=== PATIENT | male | born 1945 | race Caucasian/White ===

== ENCOUNTER → 2018-02-24 | Outpatient (CLI) | payer MEDICARE | END | disposition home or self-care (01) | LOC: PCVCCLINIC 15:53 | PROVIDERS: ATTEND Internal Medicine | DX: I11.0 Hypertensive heart disease with heart failure (principal); E78.5 Hyperlipidemia, unspecified; I65.23 Occlusion and stenosis of bilateral carotid arteries; F17.201 Nicotine dependence, unspecified, in remission; R06.02 Shortness of breath | CPT/HCPCS: 36415; 80061; 93005; G0463 ==

== ENCOUNTER → 2018-03-01 | Outpatient (CLI) | payer MEDICARE ==
--- NOTE | 2018-03-01 11:19 | PCVCIMAG ---
APPROVED REPORT Indications Amaurosis Fugax Stenosis Risk Factors Hypertension: History of Smoking Doppler Spectral Velocity Analysis PSV / EDVPSV / EDV ECA (R) 62 / 14 cm/sECA (L) 57 / 9 cm/s dICA (R) 90 / 34 cm/sdICA (L) 59 / 21 cm/s Jamila (R) 70 / 22 cm/smICA (L) 60 / 22 cm/s pICA (R) 44 / 18 cm/spICA (L) 50 / 17 cm/s Bulb (R) 65 / 19 cm/sBulb (L) 85 / 20 cm/s dCCA (R) 74 / 20 cm/sdCCA (L) 90 / 20 cm/s mCCA (R) 79 / 21 cm/smCCA (L) 96 / 25 cm/s Vert (R) 31 / 13 cm/sVert (L) 51 / 22 cm/s ICA/CCA 1.22ICA/CCA 0.67 Basic Measurements Blood Pressure: Pulses: Right Left RightLeft Brachial(Sitting) 140/45lsKw377/84mmHgTemporal Real Time B-Mode Imaging Vert. (R)AntegradeVert. (L)Antegrade Findings The right carotid bulb has mild plaque. The right proximal internal carotid artery shows no significant stenosis. The right common carotid artery shows no significant stenosis. The right external carotid artery shows no significant stenosis. The left carotid bulb has mild plaque. The left proximal internal carotid artery shows no significant stenosis. The left common carotid artery shows no significant stenosis. The left external carotid artery shows no significant stenosis. Conclusion 1. Mild bilateral plaquing without significant stenosis 2. Antegrade vertebral flow
--- NOTE | 2018-03-01 14:42 | PCVCIMAG ---
EXAM: AORTOILIAC DUPLEX INDICATION: Palpable abdominal fullness. FINDINGS: AORTA: Suprarenal aorta measures maximum diameter of 2.7 cm. There is not a fusiform infrarenal aortic aneurysm. The infrarenal aorta measures maximum diameter of 2.4 cm. No aortic stenosis. RIGHT COMMON ILIAC ARTERY: Maximum diameter is 1.6 cm. No significant stenosis. RIGHT EXTERNAL ILIAC ARTERY: No significant stenosis. LEFT COMMON ILIAC ARTERY: Maximum diameter is 1.5 cm. No significant stenosis. LEFT EXTERNAL ILIAC ARTERY: No significant stenosis. IMPRESSION: No abdominal aortic aneurysm. No aortoiliac stenosis seen. LOC:[id number]
== END | disposition home or self-care (01) ==
LOC: PCVCIMAG 09:27
PROVIDERS: ATTEND Internal Medicine
DX: I65.23 Occlusion and stenosis of bilateral carotid arteries (principal); R09.89 Other specified symptoms and signs involving the circulatory and respiratory systems; F17.201 Nicotine dependence, unspecified, in remission; I10 Essential (primary) hypertension
CPT/HCPCS: 93880; 93978

== ENCOUNTER → 2018-03-04 | Outpatient (CLI) | payer MEDICARE ==
--- NOTE | 2018-03-04 15:20 | PCVCIMAG ---
APPROVED REPORT Study performed: 03/04/2018 11:07:17 Exam: Stress Echocardiogram Indication: Hypertension Patient Location: Echo lab Stress Nurse: Ning Clements RN Status: routine Ht: 5 ft 8 in HR: 94 bpm BP: 118/80 mmHg Rhythm: NSR Medical History Medical History: dyspnea Procedure The patient underwent an Exercise Stress Test using the Last Protocol. Blood pressure, heart rate, and EKG were monitored. An Echocardiogram was performed by compressor service technician in four stages in quad fashion. At peak stress, four selected images were obtained and placed side by side with resting images for comparison. Stress Test Details Stress Test: Exercise stress testing was performed using a Last protocol. HR Resting HR: 94 bpmMax Heart Rate (APMHR): 148 bpm Max HR Achieved: 153 bpmTarget HR (85% APMHR): 125 bpm % of APMHR: 103 Recovery HR: 102 bpm HR response to stress: Normal HR response to stress BP Resting BP: 118/80 mmHg Max BP: 154/80 mmHg Recovery BP: 112/78 mmHg BP response to stress: Normal blood pressure response to stress. ECG Resting ECG: Sinus Rhythm Stress ECG: Sinus Rhythm ST Change: Normal Maximum ST Deviation: 0 mm Arrhythmia: None Recovery ECG: Sinus Rhythm Recovery ST Change: Normal Recovery ST Deviation: 0 mm Recovery Arrhythmia: None Clinical Reason for Termination: Dyspnea, Back pain Exercise duration: 5 min 00 sec Highest Stage Achieved: Stage 2: 2.5 mph at 12% grade. Exercise capacity: 7.00 METs Overall Exercise Capacity for Age: Poor Angina Score: None Stress ECG Conclusion Clinical: Non-ischemic ECG: Non-ischemic Tolliver Treadmill Score is 5.0 which is Low risk. Pre-Stress Echo The resting Echocardiogram showed normal left ventricular contractility with an estimated Ejection Fraction of about 55-60%. Normal wall motion in all segments on baseline images. Post-Stress Echo The stress Echocardiogram showed normal left ventricular contractility with an estimated Ejection Fraction of about 60-65%. Normal augmentation of wall motion in all segments on post stress images. Clinical No clinical or ECG evidence for ischemia. Conclusion Clinical Response: Non-ischemic Exercise Capacity: Below Average Stress ECG Response: Non-ischemic Stress Echo Images: Non-ischemic The left ventricle is normal in size and wall thickness in both the rest and stress images. Normal stress echocardiogram with maximal exercise stress. Other Information Study Quality: Adequate <Conclusion> The left ventricle is normal in size and wall thickness in both the rest and stress images. Normal stress echocardiogram with maximal exercise stress.
== END | disposition home or self-care (01) ==
LOC: PCVCIMAG 10:49
PROVIDERS: ATTEND Internal Medicine
DX: I10 Essential (primary) hypertension (principal); R06.09 Other forms of dyspnea
CPT/HCPCS: 93325; 93351